=== PATIENT | female | born 1955 | race Caucasian/White ===

== ENCOUNTER 2021-02-24 19:46 | Emergency (ER) | payer OTHER ==
[~2021-02-24] VITALS: Ht 152.4 cm; Wt 49.9 kg
[~2021-02-24 19:46] MED LIST: AMIT25; CALCA500CH; HYDPAM25; IBUP200; Pepcid40 MG PO; TEMA15; Zofran Odt4 MG PO
== END 2021-02-24 22:46 | disposition home or self-care (01) ==
LOC: ER 19:46
DX: S91.202A Unspecified open wound of left great toe with damage to nail, initial encounter (principal); E03.9 Hypothyroidism, unspecified; Z23 Encounter for immunization; Z88.0 Allergy status to penicillin; Z88.1 Allergy status to other antibiotic agents; W22.8XXA Striking against or struck by other objects, initial encounter
CPT/HCPCS: 11750; 90471; 90714; 99282-25